=== PATIENT | male | born 1975 | race Caucasian/White ===

== ENCOUNTER 2024-04-03 09:27 | Outpatient (CLI) | payer OTHER, SELFPAY | END 2024-04-03 09:28 | disposition home or self-care (01) | PROVIDERS: PCP Family Medicine; Visit Provider Family Medicine | DX: I10 Essential (primary) hypertension (principal); E78.2 Mixed hyperlipidemia; Z13.9 Encounter for screening, unspecified | CPT/HCPCS: 80048; 80061; 84460; 85025 ==

== ENCOUNTER 2024-07-16 13:48 | Outpatient (CLI) | payer OTHER, SELFPAY | END 2024-07-16 13:49 | disposition home or self-care (01) | PROVIDERS: PCP Family Medicine; Visit Provider Family Medicine | DX: L40.9 Psoriasis, unspecified (principal); I10 Essential (primary) hypertension | CPT/HCPCS: 80048; 84460; 85025 ==

== ENCOUNTER 2024-07-20 13:40 | Outpatient (CLI) | payer OTHER, SELFPAY | END 2024-07-20 13:41 | disposition home or self-care (01) | LOC: RAD 13:40 | PROVIDERS: PCP Family Medicine; Visit Provider Family Medicine | DX: Q23.81 Bicuspid aortic valve (principal) | CPT/HCPCS: 93306 ==